=== PATIENT | male | born 1985 | race Two or more races ===

== ENCOUNTER 2024-05-31 17:40 | Emergency (ER) | payer OTHER ==
[~2024-05-31] VITALS: Ht 182.9 cm; Wt 79.4 kg
[2024-05-31 20:06] LABS: URINE APPEARANCE Turbid; URINE BILIRRUBIN Negative (NEGATIVE); URINE COLOR Dark Yellow; URINE GLUCOSE Negative (NEGATIVE); URINE KETONE Trace (NEGATIVE); URINE LEUKOCYTE Large; URINE NITRATE Negative
[2024-05-31 20:06] LABS: HEMATOCRIT 41.1 % (39.0-48.0); HEMOGLOBIN 14.4 g/dL (13-16.00); MEAN CELL VOLUME 100.6 fL (80.0-100.00); MEAN CORPUSCULAR HEMOGLOBIN 35.2 pg (27.00-32.0); PLATELET COUNT 259 K/uL (150-450); RED BLOOD COUNT 4.08 M/uL (4.00-6.00); RED CELL DISTRIBUTION WIDTH 13.5 % (11.5-14.5)
[2024-05-31 20:10] LABS: URINE BACTERIA 215.4 uL (0.0-1933); URINE RBC 38.9 uL (0.0-20.8)
[2024-05-31 20:53] LABS: URINE BLOOD Trace; URINE CAST 0.15 uL (0.0-1.40); URINE EPITHELIAL CELLS 0.6 uL (0.0-38.8); URINE PROTEIN 100 (NEGATIVE); URINE WBC > 5548.3 uL (0.0-23.2)
[2024-05-31] MEDS ORDERED: PENICILLIN G BENZATHINE LA 1.2 MMU/2 ML DISP.SYRIN IM ONE (21:30)
[2024-05-31] MEDS ORDERED: CEFTRIAXONE SODIUM 1,000 MG VIAL ONE (21:38)
[2024-05-31] MEDS ORDERED: CEFTRIAXONE SODIUM 1,000 MG VIAL IM ONE (21:45)
[2024-05-31] MEDS ORDERED: LEVOFLOXACIN750 MG PO (22:28)
[2024-05-31] MEDS ORDERED: AZITHROMYCIN 500 MG TABLET PO ONE ×2 (22:30)
== END 2024-05-31 22:49 | disposition home or self-care (01) ==
LOC: ER 17:42
PROVIDERS: Preventive Medicine Public Health & General Preventive Medicine
DX: N34.2 Other urethritis (principal)